=== PATIENT | male | born 1980 | race Caucasian/White ===

== ENCOUNTER 2024-06-13 11:53 | Emergency (ER) | payer OTHER ==
[~2024-06-13] VITALS: Ht 172.7 cm; Wt 67.7 kg
[2024-06-13] MEDS ORDERED: CLONAZEPAM1 MG PO (13:07)
[2024-06-13] MEDS ORDERED: SOMA250 MG PO (13:08)
[2024-06-13] MEDS ORDERED: LYRICA300 MG PO (13:08)
[2024-06-13] MEDS ORDERED: METHADONE IN10 MG/ML PO (13:08)
[2024-06-13] MEDS ORDERED: PENICILLIN V P500 MG PO (13:28)
[2024-06-13] MEDS ORDERED: NICOTINE GUM4 MG BUCCAL (13:28)
[2024-06-13] MEDS ORDERED: BUPIVACAINE 0.25% W/ EPI 30 ML SDV DENTAL PRN (13:30)
[2024-06-13] MEDS ORDERED: PENICILLIN V POTASSIUM 500 MG TAB PO ONE (13:30)
[2024-06-13 14:40] VITALS: BP 117/81
== END 2024-06-13 14:40 | disposition home or self-care (01) ==
LOC: ED 11:53
DX: K02.9 Dental caries, unspecified (principal); R00.0 Tachycardia, unspecified; F17.200 Nicotine dependence, unspecified, uncomplicated; Z79.899 Other long term (current) drug therapy
CPT/HCPCS: 64400; 99283-25

== ENCOUNTER 2025-03-12 17:34 | Emergency (ER) | payer OTHER ==
[~2025-03-12] VITALS: Ht 172.7 cm; Wt 68.0 kg
[~2025-03-12 17:34] MED LIST: CLONAZEPAM1 MG PO; LYRICA300 MG PO; METHADONE IN10 MG/ML PO; NICOTINE GUM4 MG BUCCAL; PENICILLIN V P500 MG PO; SOMA250 MG PO
[2025-03-12 17:56] LABS: BASOPHILS 0.3 % (0.2-1.2); EOSINOPHILS 1.0 % (0.8-7.0); LYMPHOCYTES 19.7 % (21.8-53.1); MCH 26.6 PG (25.7-32.2); MCHC 31.7 g/dL (32.3-36.5); MCV 84.0 fL (79.0-92.2); MONOCYTES 7.3 % (5.3-12.2); NEUTROPHILS 71.4 % (34.0-67.9); RBC 4.13 M/uL (4.63-6.08)
[2025-03-12] MEDS ORDERED: LACTATED RINGER'S 1,000 ML IV ONE (18:00)
[2025-03-12] MEDS ORDERED: MORPHINE SULFATE 4 MG/ML VIAL IV ONE (18:00)
[2025-03-12 18:18] LABS: ALCOHOL, MEDICAL <3 ng/dL (<3); ALT (SGPT) 26 U/L (14-59); AST (SGOT) 39 U/L (15-37); GLOMERULAR FILTRATION RATE,EST 106 mL/min (>60); PROTEIN, TOTAL 7.3 g/dL (6.4-8.2); UREA NITROGEN 16 mg/dL (7-18)
[2025-03-12] MEDS ORDERED: HYDROCODON-ACE1 EA10 PO (20:10)
[2025-03-12] MEDS ORDERED: HYDROCODONE BIT/ACETAMINOPHEN 5/325 MG 1 TAB HOME.PACK PO ONE (20:15)
[2025-03-12 20:45] VITALS: BP 152/96
== END 2025-03-12 20:45 | disposition home or self-care (01) ==
LOC: ED 17:34
PROVIDERS: Emergency Medicine
DX: S42.034A Nondisplaced fracture of lateral end of right clavicle, initial encounter for closed fracture (principal); S01.112A Laceration without foreign body of left eyelid and periocular area, initial encounter; V23.41XA Electric (assisted) bicycle driver injured in collision with car, pick-up truck or van in traffic accident, initial encounter; Z79.899 Other long term (current) drug therapy
CPT/HCPCS: 36415; 70450; 71045; 72125; 73030; 73610; 80053; 80307; 85025; 96374; 96375; 99284-25; A9270; G0480; J2270; J2405; J7121